=== PATIENT | female | born 1990 | race Caucasian/White ===

== ENCOUNTER → 2018-05-28 08:56 | Outpatient (CLI) | payer BC, SELFPAY ==
[2018-05-28 13:36] LABS: Chlamydia Trachomatis by PCR Negative (Negative); Neisserai gonorrhoeae by PCR Negative (Negative); Probe Check PASS; Sample Adequacy Control PASS; Specimen Processing Control PASS
[2018-05-31 12:06] LABS: HPV Reflexed? NOT INDICATED
== END ==
PROVIDERS: Visit Provider Obstetrics & Gynecology
DX: Z11.3 Encounter for screening for infections with a predominantly sexual mode of transmission (principal); Z12.4 Encounter for screening for malignant neoplasm of cervix
CPT/HCPCS: 87491; 87591; 88175; G0145

== ENCOUNTER → 2018-06-17 10:26 | Outpatient (CLI) | payer BC, SELFPAY ==
[2018-06-17 13:39] LABS: Color, Urine Yellow (Yellow); Glucose, Dipstick Normal (Normal); Ketone-Dipstick Negative (Negative); Leukocyte Esterase-Dipstick Negative /ul (Negative); Nitrite-Dipstick Negative (Negative); Occult Blood-Urine Negative /ul (Negative); Protein-Dipstick Negative (Negative); Urine Bilirubin Dipstick Negative (Negative); Urine Clarity Clear (Clear); Urine Urobilinogen Normal (Normal)
[2018-06-17 13:50] LABS: Absolute Lymphocyte Count 1.87 X10^3/ul (0.83-4.51); Absolute Neutrophil Count 6.5 X10^3/uL (2.0-7.7); Basophil# 0.01 X10^3/uL; Basophil% 0.1 % (0-1); Eosinophils% 2.2 % (0-5); Hematocrit 38.5 % (37-47); Hemoglobin 12.5 g/dl (12.0-15.0); Lymphocyte # 1.87 X10^3/ul (4.0); Lymphocyte % 20.9 % (19-41); Mean Corp Hgb Conc 32.5 g/gl (32-36); Mean Corpuscular Hgb 26.4 pg (27.0-32.0); Mean Corpuscular Volume 81.2 fL (81-99); Monocyte# 0.39 X10^3/uL; Monocyte% 4.4 % (0-10); Neutrophil # 6.45 X10^3/uL (2.7-7.7); Neutrophil % 72.3 % (47-70); Platelet Count 381 K/mm3 (150-450); RBC Distribution Width CV 14.2 % (11.6-14.6); RBC Distribution Width SD 41.5 fl (35.1-43.9); Red Blood Count 4.74 M/mm3 (4.2-5.4); White Blood Count 8.9 K/mm3 (4.4-11.0)
[2018-06-17 13:52] LABS: POSITIVE COUNT NO; POSITIVE DIFFERENTIAL NO; POSITIVE MORPHOLOGY NO
[2018-06-17 13:56] LABS: Amphetamine Urine VISTA NEGATIVE (<1000 ng/mL); Barbiturate Urine VISTA NEGATIVE (< 200 ng/mL); Benzodiazepine Urine VISTA NEGATIVE (< 200 ng/mL); Cocaine Urine VISTA NEGATIVE (< 300 ng/mL); Ecstacy Urine VISTA NEGATIVE (< 500 ng/mL); Methadone Urine VISTA NEGATIVE (< 300 ng/mL); PCP Urine VISTA NEGATIVE (< 25 ng/mL); THC Urine VISTA NEGATIVE (< 50 ng/mL); Vista UDS pH Range 6
[2018-06-17 14:28] LABS: Thyroid Stim Hormone (TSH) 1.37 uIU/mL (0.358-3.74)
[2018-06-17 14:55] LABS: HIV - WCH Non-Reactive (Nonreactive); Rubella IgG 80.9 IU/mL
[2018-06-18 10:59] LABS: HEPATITIS B SURFACE AG Negative (Negative); Hep C Antibodies <0.1 s/co ratio (0.0-0.9); Toxoplasma Gondii IgG 48.7 IU/mL (0.0-7.1)
[2018-06-18 11:00] LABS: Toxoplasma Gondii IgM < 3.0 AU/mL (0.0-7.9)
[2018-06-21 01:16] LABS: Prenatal RPR NONREACTIVE (NONREACTIVE)
== END ==
PROVIDERS: Visit Provider Obstetrics & Gynecology
DX: Z34.81 Encounter for supervision of other normal pregnancy, first trimester (principal)
CPT/HCPCS: 36415; 80307; 81002; 84443; 85025; 86703; 86762; 86777; 86778; 86803; 87340

== ENCOUNTER → 2018-10-24 09:12 | Outpatient (CLI) | payer BC, SELFPAY ==
[2018-10-24 12:11] LABS: Hematocrit 35.8 % (37-47); Hemoglobin 11.3 g/dl (12.0-15.0); Mean Corp Hgb Conc 31.6 g/gl (32-36); Mean Corpuscular Hgb 26.3 pg (27.0-32.0); Mean Corpuscular Volume 83.4 fL (81-99); Mean Platelet Vol. 10.2 fl (6.2-12.0); Platelet Count 268 K/mm3 (150-450); RBC Distribution Width CV 14.3 % (11.6-14.6); Red Blood Count 4.29 M/mm3 (4.2-5.4); White Blood Count 7.8 K/mm3 (4.4-11.0)
[2018-10-24 12:12] LABS: Scan Indicated on CBC? Y/N NO
[2018-10-24 12:22] LABS: Glucose Challenge Gest 1H 50g 136 mg/dL (70-140)
== END ==
PROVIDERS: Visit Provider Obstetrics & Gynecology
DX: Z34.82 Encounter for supervision of other normal pregnancy, second trimester (principal)
CPT/HCPCS: 36415; 82950; 85027

== ENCOUNTER → 2018-12-19 | Outpatient (CLI) | payer BC, SELFPAY | END | disposition home or self-care (01) | PROVIDERS: Visit Provider Obstetrics & Gynecology | DX: Z36.85 Encounter for antenatal screening for Streptococcus B (principal) | CPT/HCPCS: 87077; 87081; 87186 ==

== ENCOUNTER 2019-01-13 09:45 | Inpatient (IN) | payer BC, SELFPAY ==
[2017-02-28 11:40] VITALS: BMI 52.4
[2019-01-13] VITALS (17 sets, daily range): BP systolic 101–148; BP diastolic 49–85; PULSE 63–98; RESP 16–18; TEMP 36.1–36.9; O2SAT 96–100; BMI 50.5
[2019-01-13] MEDS: Lactated Ringers 1,000 ML 999 ML IV (10:30)
[2019-01-13 10:59] LABS: International Normalized Ratio 0.9; Prothrombin Time (Protime)PT. 12.3 SECONDS (11.7-14.9)
[2019-01-13 11:00] LABS: Partial Thromboplast Time 27.4 Seconds (24.1-36.2)
[2019-01-13 11:06] LABS: Absolute Lymphocyte Count 1.79 X10^3/ul (0.83-4.51); Absolute Neutrophil Count 7.8 X10^3/uL (2.0-7.7); Basophil# 0.01 X10^3/uL; Basophil% 0.1 % (0-1); Eosinophil# 0.06 X10^3/uL; Eosinophils% 0.6 % (0-5); Hematocrit 36.2 % (37-47); Hemoglobin 11.8 g/dl (12.0-15.0); Lymphocyte # 1.79 X10^3/ul (4.0); Lymphocyte % 17.6 % (19-41); Mean Corp Hgb Conc 32.6 g/gl (32-36); Mean Corpuscular Hgb 26.3 pg (27.0-32.0); Mean Corpuscular Volume 80.8 fL (81-99); Monocyte% 4.9 % (0-10); Neutrophil # 7.82 X10^3/uL (2.7-7.7); Neutrophil % 76.7 % (47-70); Platelet Count 292 K/mm3 (150-450); RBC Distribution Width CV 14.2 % (11.6-14.6); RBC Distribution Width SD 41.4 fl (35.1-43.9); Red Blood Count 4.48 M/mm3 (4.2-5.4); White Blood Count 10.2 K/mm3 (4.4-11.0)
[2019-01-13 11:15] LABS: POSITIVE COUNT NO; POSITIVE DIFFERENTIAL NO; POSITIVE MORPHOLOGY NO
[2019-01-13] MEDS: Lactated Ringers 1,000 ML 150 ML IV (11:30)
[2019-01-13] MEDS: Sodium Citrate/Citric Acid 30 ML UDC PO (12:14)
[2019-01-13] MEDS: Cefazolin 2 GM in 0.9% Normal Saline 100 ML IV (12:14)
--- NOTE | 2019-01-13 12:18 | DCINST_ITS ---
Discharge Diet: No Restrictions Discharge Activity: Return to Normal Activity, May Not Drive, May not drive while taking narcotic pain medications., May Shower Return to work on:: 03/17/19 May shower in (days): 0 May resume sexual activity in: 4-6 weeks Call your doctor if your incision/area has: Sudden Increased Bleeding, Increased Pain/ Swelling, Increased Redness, Foul Smelling Discharge, Swelling at the incision site Call your doctor if you observe: Fever of 101 or Higher, Inability to urinate, Inability to have a bowel movement, Using more than one pad per hour, Shortness of breath, Chest pain, Calf discomfort, Uncontrolled pain Remove Dressing in (days):: 3 Cleanse incision/area with: Soap & Water Additional Instructions: If you experience any of the following, contact your healthcare provider. * Bleeding that soaks a pad every hour for 2 hours * Fever 100.4 or higher * Unrelieved incision or abdominal pain * Swelling, redness, discharge or bleeding from your incision or episiotomy site * Your incision begins to separate * Problems urinating (including inability to urinate or burning while uri nating). * Visual changes * Severe headache * Flu-like symptoms * Pain or redness in one of both of your breasts * Pain, warmth, tenderness or swelling in your legs, especially the calf area * Frequent nausea and vomiting * Symptoms of depression or anxiety If you experience any of the following, call 911 or go to the nearest Emergency Room. * Chest pain * Problems breathing * Seizure activity * Partial or complete paralysis of a body part, slurred speech, weakness or drooping of the face, or a sudden inability to walk or hold your balance Allergies/Adverse Reactions: Allergies oysters Allergy (Uncoded 02/28/17 11:45) Anaphylaxis states only oysters and does fine with iodine Medications to take at Discharge Prenatabs FA 1 tablet PO DAILY 02/28/17 Ibuprofen [Motrin] 800 mg PO TID PRN PRN #30 tablet 03/01/17 Labetalol [Trandate (Beta Bert)] 200 mg PO BID #60 tablet 03/01/17 Oxycodone [Oxyir] 5 - 10 mg PO Q4H PRN PRN #30 tablet 03/01/17 Ibuprofen [Motrin] 600 mg PO Q6H PRN PRN #30 tab 01/13/19 Oxycodone [Oxyir] 5 - 10 mg PO Q4H PRN PRN 7 Days #20 tablet 01/13/19 The following prescriptions were given: Oxycodone [Oxyir] 5 - 10 mg PO Q4H PRN PRN 7 Days #20 tablet PRN Reason: Mod-Severe Pain (4-10/10) Ibuprofen [Motrin] 600 mg PO Q6H PRN PRN #30 tab PRN Reason: pain or cramping Follow-Up: Call to make an appointment with your doctor for an incision check in 1-2 weeks. You will also need a 6 week post- follow up appointment. Test results from this visit will be discussed in further detail at your follow- up appointment, if applicable. Please Follow Up With: Baudilio Plasencia MD When: one week Primary Care Physician: Care Physician,No Primary [Primary Care Provider] - Proposed Discharge Date: 01/15/19
--- NOTE | 2019-01-13 12:26 | OP.PCM_ITS ---
Report of Operation Date of Procedure: 01/13/19 Pre-Operative Diagnosis: Previous Section Post-Operative Diagnosis: Same Surgery/Procedure Performed:: Repeat Low Transverse Section Description of Surgical Findings:: Delivery of live male weighing 8lb6oz. APGARs 8/9. Normal appearing uterus, ovaries, and fallopian tubes. Minimal scarring. eyedotter: Letty Rosales Type of Anesthesia:: Spinal Anesthesiologist: Yariel Davalos Special Medications: none Specimen's removed: none Drains: bennett Estimated Blood Loss (mL): 400cc Fluids Replaced: 1500cc LR Description of Procedure: Kari was taken to the OR with IV running. She was given two grams of Ancef intravenously for surgical prophylaxis. Spinal anesthesia was introduced without complication. She was then prepped and draped in the supine position with a leftward tilt. A bennett catheter was placed. Once anesthesia was deemed adequate a Pfannensteil skin incision was made through the previous lower abdominal scar. The underlying subcutaneous tissue was dissected down to the level of the fascia with sharp and blunt dissection. The fascia was then incised in a transverse fasa in the midline. The fascial defect was extended bilaterally with the Aguilera scissors. The rectus muscles were then dissected off the upper and lower portion of the fascial defect. The rectus muscles were then in the midline, the peritoneum identified, and then entered sharply. The peritoneal defect was then enlarged used blunt retraction. A bladder blade was then placed. A bladder flap was then created and the bladder blade repla paulie. The lower uterine segment was then incised in a transverse fashion. Once the cavity was entered the membranes were ruptured with clear fluid noted. The uterine defect was then enlaarged with blunt lateral and superior traction. The baby's head was then delivered easily followed by the body. The mouth and nares were then suctioned with a bulb suction and the baby stimulated. Delayed cord clamping was employed. The cord was then clamped and cut and the baby handed off to the waiting nurse for evaluation. The placenta was then delivered manually. The uterus was exteriorized and cleared of all clot and membranes. The uterus was closed in two layer with #1 Vicryl cuture with good hemostasis noted. The posterior cul de sac and gutters were cleared of all fluid and clot. The uterus was returned to the abdomen. The uterine incision was reinspected and found to be intact. The peritoneum was closed with a running stitch of 2-0 Vicryl. The rectus muscles were reapproximated with interrupted sutures of 0-Vicryl. The fascia was closed with a running stitch of #1 Stratofix suture. The subcutaneous tissue was closed with 2-0 Vicryl. The skin was closed with a subcuticular stitch of 4-0 Monocryl. Sponge, lap, needle, and instrument counts were correct. She was taken to the recovery room in stable condition. Grafts/Implants Used: none - Complications none - Admit VTE Documentation VTE Present on Admission: No VTE Mechan Device Prophylaxis: SCD's VTE Pharm Prophylaxis ordered?: No Delivery Classification: Scheduled Final ALEX: 01/18/19 Final ALEX Source: US <20 weeks Gestational age: 39 Weeks and 3 Days Indications for : Repeat Elective Description of Procedure: see op note Amniotic Membrane Rupture Type: Artificial Amniotic Fluid Description: Clear Placenta Disposition: [facility] Specimen(s) sent to pathology: none Drain: Bennett to straight drain Fluids Replaced: 1500cc LR Cord Entanglement: None Nuchal Cord Compression: Without compression Cord Vessel Description: 3 Vessels Esitmated Blood Loss (ml): 400cc Infant Gender: Male (1 minute): 8 (5 minute): 9 Delayed cord clamping: Yes Pre-op Antibiotic Given: Ancef 2 grams IV x1 Pt instructed on risks of surgery: Bleeding, Infection, Injury to surrounding structure(s) including bowel and bladder Complications: None - Admit VTE Documentation VTE Present on Admission: No VTE Mechan Device Prophylaxis: SCD's VTE Pharm Prophylaxis ordered?: No
[2019-01-13] MEDS: Oxytocin 30 units/NS 500 ml 30 UNITS/500 ML IV.SOLN 167 UNITS IV (12:46)
[2019-01-13] MEDS: Ketorolac 30 MG/ML Syringe IV ×2 (13:05→19:11)
[2019-01-13] MEDS: Lactated Ringers 1,000 ML 100 ML IV ×2 (13:19→20:28)
[2019-01-13] MEDS: 0.9% Saline Lock 10 ML Syringe IV (19:11)
[2019-01-13] MEDS: Cefazolin 1 GM/50 ML BAG IV (20:28)
--- NOTE | 2019-01-13 23:00 | NURSING ---
Report given to Julissa MELISSA.
[2019-01-14] VITALS (8 sets, daily range): BP systolic 120–155; BP diastolic 56–84; PULSE 76–89; RESP 16; TEMP 36.2–36.7; O2SAT 95–99
[2019-01-14] MEDS: Ketorolac 30 MG/ML Syringe IV ×4 (00:07→18:57)
[2019-01-14] MEDS: Cefazolin 1 GM/50 ML BAG IV (04:12)
[2019-01-14] MEDS: Lactated Ringers 1,000 ML 100 ML IV (06:13)
[2019-01-14 06:32] LABS: Hematocrit 31.4 % (37-47); Hemoglobin 10.1 g/dl (12.0-15.0); Mean Corp Hgb Conc 32.2 g/gl (32-36); Mean Corpuscular Hgb 26.4 pg (27.0-32.0); Mean Corpuscular Volume 82.2 fL (81-99); Mean Platelet Vol. 10.5 fl (6.2-12.0); Platelet Count 218 K/mm3 (150-450); RBC Distribution Width CV 14.5 % (11.6-14.6); RBC Distribution Width SD 43.1 fl (35.1-43.9); Red Blood Count 3.82 M/mm3 (4.2-5.4); Scan Indicated on CBC? Y/N NO; White Blood Count 10.7 K/mm3 (4.4-11.0)
--- NOTE | 2019-01-14 08:40 | PN_ITS ---
Subjective: No specific complaints. Breast feeding. Bleeding appropriate. Pain reasonably controlled. Objective: Afeb VSS Hgb appropriate. I/O good. - Physical Exam General: Alert, Oriented x3, Cooperative, No apparent distress Lungs: Clear to auscultation, Normal air movement Cardiovascular: Regular rate, Regular Rhythm Abdomen: Soft, Non Tender, Non-Distended, - - Incision dressing dry Extremities: No edema Skin: No rashes Neurological: Neuro grossly intact Psych/Mental Status: Normal Affect Comment: Lochia appropriate Vital Signs Temp Pulse Resp BP Pulse Ox 97.6 F L 80 16 123/56 H 99 01/14/19 07:32 01/14/19 07:32 01/14/19 07:32 01/14/19 07:32 01/14/19 07:32 Oxygen Flow Rate (L/min) 2 Oxygen Delivery Method Room Air Weight: 285 lb 0.923 oz Body Mass Index (BMI) 50.5 Intake and Output for Last 24 Hours 01/12/19 01/13/19 01/14/19 23:59 23:59 23:59 Intake Total 3097 / 3097 1200 / 1200 Output Total 900 / 900 900 / 900 Balance 2197 / 2197 300 / 300 Laboratory Tests Past 24 Hrs 01/13/19 01/13/19 01/13/19 10:30 10:30 10:30 WBC 10.2 RBC 4.48 Hgb 11.8 L Hct 36.2 L MCV 80.8 L MCH 26.3 L MCHC 32.6 RDW 14.2 RDW Differential 41.4 Plt Count 292 MPV 11.0 Immature Gran % (Auto) 0.100 Neut % (Auto) 76.7 H Lymph % (Auto) 17.6 L [place]more % (Auto) 4.9 Eos % (Auto) 0.6 Baso % (Auto) 0.1 Absolute Neuts (auto) 7.8 H Absolute Lymphs (auto) 1.79 Total Counted Not Reportable PT 12.3 INR 0.9 APTT 27.4 Blood Type A POSITIVE Antibody Screen NEGATIVE 01/14/19 06:20 WBC 10.7 RBC 3.82 L Hgb 10.1 L Hct 31.4 L MCV 82.2 MCH 26.4 L MCHC 32.2 RDW 14.5 RDW Differential 43.1 Plt Count 218 MPV 10.5 Immature Gran % (Auto) Neut % (Auto) Lymph % (Auto) Fillmore % (Auto) Eos % (Auto) Baso % (Auto) Absolute Neuts (auto) Absolute Lymphs (auto) Total Counted PT INR APTT Blood Type Antibody Screen Medical Necessity - Tobacco Use Smoking Status: Never smoker Assessment/Plan Doing well on POD#1. Continue routine PO care. Anticipate discharge home tomorrow or . D/C bennett later today.
--- NOTE | 2019-01-14 14:26 | CASEMGMT ---
Addendum entered and electronically signed by Susannah Beltran 01/14/19 16:15: Reviewed and approved [employer] OPERATOR student technology internship documentation below. -Susannah Beltran, KEYSHA-Poli, BOX PERSON Original Note: Social Work Labor and Delivery Date of Referral: 01/13/19 Time of Referral: [id number] Referred By: Dr Plasencia Date of intervention: 01/14/19 Time of intervention: 1340pm Reason for referral: resources History obtained from: medical record, mother of the baby (NISHA) Kari Ruffin Household Composition: NISHA lives with parents and son Tate (2) Patient's parents guardian status: NISHA is currently from Father of the baby (FOB) Aman Ruffin and pursuing a divorce since April 2018. They were together for 9 years. NISHA is in a new relationship with Hipolito. They have been together for just a few months. NISHA denies any history of domestic violence with Aman or Hipolito. Medical History: NISHA is to 2 after of baby Jonathan. NISHA began PNC at 9 weeks. Jonathan was born on 01/[birth year] at 8lbs and 6oz with scores of 8 and 9. Educational Status: NISHA has a bachelor's degree. MOB confirmed to be able to read, write, and comprehend. Financial Status: NISHA works at [employer] in [place]. Supplies: NISHA reports to have a car seat, bassinet for sleeping, crib, clothing, diapers, wipes, and a breast pump. Transportation: MOB denied any issues with transportation. Programs/agencies involved: NISHA is not currently involved with any agencies or programs. MOB accepted WIC application and food stamps application. MOB declined [facility] referral. Children Services/Legal Issues: NISHA is going through a divorce currently. MOB denies any other history of legal issues or children services. Behavioral Health Issues: Mental Health History: NISHA does not have any diagnoses. MOB denied any history or current suicidal ideations. Substance Use History: MOB denies use of illicit drugs. Family History: MOB reported that BRENDA Newton abused alcohol and marijuana. Drug Screens: MOB tested negative at PNC visit 06/17/18 Family/Social Stressors: MOB identified enduring a divorce currently is a stressor. MOB also spoke about not having received any child support yet. Support Systems: MOB reported Hipolito to be a support system. MOB's parents also a support system. ASSESSMENT: MOB and boyfriend Hipolito were in room with rose Castillo. Hipolito was asked to leave room so MOB could speak privately. MOB answered all questions appropriately and cared for rose Castillo gently. MOB spoke about new boyfriend Hipolito as recent. MOB spoke about current divorce process form Aman as a stressor. MOB confirmed that reason for divorce was that Aman hide alcohol consumption and marijuana usage for duration of relationship. MOB learned one day when Aman was taking care of tremaine Ybarra and using alcohol and marijuana. MOB reports to be handling stress well with changes. MOB described self as calm person. MOB reported that tremaine Ybarra is doing well, too. MOB has no concerns regarding changes or process. MOB denied any interest in counseling options or support. MOB and health and social care teacher technology internship reviewed PPD signs and symptoms. MOB educated and understanding of safe sleeping and shaken baby precautions. MOB breast feeding baby by end of conversation. PLAN: MOB to home with baby. [facility] resource packet provided. WIC/HMG/PPD packet provided. Social work provided WIC application and [place] Application. No other services indicated or requested at this time. -Neeta Hartmann, M[employer]SP[employer] OPERATOR Student Cut Roll Machine Operator.
[2019-01-14] MEDS: oxyCODONE 5 MG Tablet PO (18:57)
[2019-01-14] MEDS: 0.9% Saline Lock 10 ML Syringe IV (18:57)
[2019-01-15] MEDS: 0.9% Saline Lock 10 ML Syringe IV (01:46)
[2019-01-15] MEDS: Ketorolac 30 MG/ML Syringe IV ×2 (01:46→07:12)
[2019-01-15 01:52] VITALS: BP 155/93; PULSE 79; RESP 18; TEMP 36.3; O2SAT 96
--- NOTE | 2019-01-15 01:57 | NURSING ---
patient denies dizziness, blurred vision, headache.
[2019-01-15 08:07] VITALS: BP 147/84; PULSE 80; RESP 16; TEMP 36.7
--- NOTE | 2019-01-15 08:50 | PCM.PN.OB ---
Subjective: No specific complaints. Bleeding light. Pain well controlled. Breast feeding. Objective: Afeb VSS - Physical Exam General: Alert, Oriented x3, Cooperative, No apparent distress Lungs: Clear to auscultation, Normal air movement Cardiovascular: Regular rate, Regular Rhythm Abdomen: Soft, Non Tender, Non-Distended, - - Incision dressing dry. Mild rash superior to dressing likely from surgical scrub allergy Extremities: No edema Skin: No rashes Neurological: Neuro grossly intact Psych/Mental Status: Normal Affect Comment: Lochia light Vital Signs Temp Pulse Resp BP Pulse Ox 98.0 F 80 16 147/84 H 96 01/15/19 08:07 01/15/19 08:07 01/15/19 08:07 01/15/19 08:07 01/15/19 01:52 Oxygen Flow Rate (L/min) 2 Oxygen Delivery Method Room Air Weight: 285 lb 0.923 oz Body Mass Index (BMI) 50.5 Intake and Output for Last 24 Hours 01/13/19 01/14/19 01/15/19 23:59 23:59 23:59 Intake Total 3097 / 3097 1200 / 1200 Output Total 900 / 900 1100 / 1100 Balance 2197 / 2197 100 / 100 Medical Necessity - Tobacco Use Smoking Status: Never smoker Assessment/Plan Doing well on POD#2. s/p repeat section. Cleared for discharge home today. Home going instructions and warnings given.
--- NOTE | 2019-01-15 08:56 | PCM.DC.SUM ---
Discharge Date and Diagnosis Date of Admission: 01/13/19 - 40 3/7 wk BAHMAN GREY. Induction. Morbidly obese Date of Discharge: 01/15/19 - Primary Discharge Diagnosis s/p repeat LTCS - Secondary Discharge Diagnosis Chronic Problems Arrest of dilation, delivered, current hospitalization (Chronic) Hospital Course and Treatment Operations: - - Repeat Low Transverse Section Summary of Care Provided: The patient is a 28 year old F [admitted for scheduled repeat LTCS. This was perforemd without complication with delivery of a live male . Postoperative course was unremarkable. Discharged home on POD#2.] - Physical Exam Vital Signs Temp Pulse Resp BP Pulse Ox 98.0 F 80 16 147/84 H 96 01/15/19 08:07 01/15/19 08:07 01/15/19 08:07 01/15/19 08:07 01/15/19 01:52 Oxygen Flow Rate (L/min) 2 Oxygen Delivery Method Room Air Weight: 285 lb 0.923 oz Body Mass Index (BMI) 50.5 Intake and Output for Last 24 Hours 01/13/19 01/14/19 01/15/19 23:59 23:59 23:59 Intake Total 3097 / 3097 1200 / 1200 Output Total 900 / 900 1100 / 1100 Balance 2197 / 2197 100 / 100 Discharge Diet: No Restrictions Discharge Activity: Return to Normal Activity, May Not Drive, May not drive while taking narcotic pain medications., May Shower Return to work on:: 03/17/19 May shower in (days): 0 May resume sexual activity in: 4-6 weeks Call your doctor if your incision/area has: Sudden Increased Bleeding, Increased Pain/ Swelling, Increased Redness, Foul Smelling Discharge, Swelling at the incision site Call your doctor if you observe: Fever of 101 or Higher, Inability to urinate, Inability to have a bowel movement, Using more than one pad per hour, Shortness of breath, Chest pain, Calf discomfort, Uncontrolled pain Remove Dressing in (days):: 3 Cleanse incision/area with: Soap & Water Home Medications: Medications to take at Discharge Prenatabs FA 1 tablet PO DAILY 02/28/17 Colace 1 cap PO PRN PRN 01/13/19 Hydrocortisone 2.5% Crm [Hytone] 1 applic TOPICAL TID PRN PRN #1 tube 01/15/19 Ibuprofen [Motrin] 600 mg PO Q6H PRN PRN #30 tab 01/15/19 Oxycodone [Oxyir] 5 - 10 mg PO Q4H PRN PRN 7 Days #20 tab 01/15/19 Following Prescrptions Were Given to Patient: Oxycodone [Oxyir] 5 - 10 mg PO Q4H PRN PRN 7 Days #20 tab PRN Reason: Mod-Severe Pain (4-07/03) Ibuprofen [Motrin] 600 mg PO Q6H PRN PRN #30 tab PRN Reason: pain or cramping Hydrocortisone 2.5% Crm [Hytone] 1 applic TOPICAL TID PRN PRN #1 tube PRN Reason: itching or rash Primary Care Physician: Care Physician,No Primary [Primary Care Provider] - Please Follow Up With: Baudilio Plasencia MD When: one week Disposition: Home Minutes spent on discharge:: 15 Patient Condition:: Good Medical Necessity - Tobacco Use Smoking Status: Never smoker Meaningful Use Info Meaningful Use Diagnoses (Choose all that apply): None applicable
[2019-01-15 12:20] VITALS: BP 150/75; PULSE 84; RESP 16; TEMP 36.8
== END 2019-01-15 12:20 | disposition home or self-care (01) | DRG 788 ==
PROVIDERS: Admitting Provider Obstetrics & Gynecology; Referring Provider Obstetrics & Gynecology; Visit Provider Obstetrics & Gynecology
PROC: 10D00Z1 Extraction of Products of Conception, Low, Open Approach (ICD-10-PCS; CPT 59514; principal; 2019-01-13 11:45)
DX: O48.0 Post-term pregnancy (principal); Z3A.40 40 weeks gestation of pregnancy; O69.81X0 Labor and delivery complicated by cord around neck, without compression, not applicable or unspecified; Z37.0 Single live birth; O99.214 Obesity complicating childbirth; E66.01 Morbid (severe) obesity due to excess calories
CPT/HCPCS: 85025; 85027; 85610; 85730; 86850; 86900; 99218; J7120; A4216; G0378; J2405

== ENCOUNTER → 2019-03-03 | Outpatient (CLI) | payer BC, SELFPAY ==
[2019-01-13 10:19] VITALS: BMI 50.5
[2019-03-03 10:52] LABS: hCG Titer Quant., Serum < 1 mIU/mL (1-3)
[2019-03-03 10:57] LABS: Progesterone Level 0.15 ng/mL (See Comment)
== END | disposition home or self-care (01) ==
LOC: WOBLAB 09:46
PROVIDERS: Visit Provider Obstetrics & Gynecology
DX: Z30.8 Encounter for other contraceptive management (principal); Z30.014 Encounter for initial prescription of intrauterine contraceptive device
CPT/HCPCS: 36415; 84144; 84702

== ENCOUNTER → 2019-03-06 13:50 | Outpatient (CLI) | payer BC, SELFPAY ==
[2019-01-13 10:19] VITALS: BMI 50.5
== END ==
PROVIDERS: Visit Provider Obstetrics & Gynecology
DX: Z11.3 Encounter for screening for infections with a predominantly sexual mode of transmission (principal)
CPT/HCPCS: 87491; 87591

== ENCOUNTER → 2019-09-01 13:40 | Outpatient (CLI) | payer BC, SELFPAY ==
[2019-01-13 10:19] VITALS: BMI 50.5
[2019-09-01 21:40] LABS: Chlamydia Trachomatis by PCR Negative (Negative); Neisserai gonorrhoeae by PCR Negative (Negative); Probe Check PASS; Sample Adequacy Control PASS; Specimen Processing Control PASS
== END ==
PROVIDERS: Visit Provider Obstetrics & Gynecology
DX: Z11.3 Encounter for screening for infections with a predominantly sexual mode of transmission (principal)
CPT/HCPCS: 87491; 87591